=== PATIENT | female | born 1935 | race Caucasian/White ===

== ENCOUNTER 2020-09-04 15:34 | Emergency (ER) | payer MEDICARE, OTHER ==
[2020-09-04] MEDS ORDERED: Boostrix 0.5 ML VIAL ONE (17:42)
--- NOTE | 2020-09-04 18:24 | CT ---
Exam: Head CT without contrast HISTORY: Fall. Pain. COMPARISON: none FINDINGS: Hemorrhage: No intraparenchymal hemorrhage or extra-axial hematoma. Brain parenchyma: Cortical hunter-white matter differentiation is preserved. No mass effect or midline shift. Basilar cisterns are patent.White matter hypodensities due to chronic small vessel ischemic change. 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 Calvarium: Intact. Scalp: Frontal scalp hematoma and soft tissue laceration with subcutaneous emphysema. Sinuses and mastoid air cells: There are bilateral nasal bone fractures. Associated soft tissue swell ing. Adequate aeration of paranasal sinuses and mastoid air cells. IMPRESSION: 1. No intracranial posttraumatic sequelae 2. Scalp hematoma. 3. Bilateral nasal bone fractures with associated soft tissue swelling.
--- NOTE | 2020-09-04 18:26 | CT ---
Exam: Maxillofacial CT without contrast HISTORY: Fall. Trauma. Pain FINDINGS: Frontal scalp hematoma with subcutaneous emphysema suggesting scalp injury and laceration. Intact philipp varium There is soft tissue swelling about the nose. There are [id number] nasal bone fractures. Nasal sep yvette is intact and not deviated. Bilateral ostiomeatal complexes are patent. Adequate aeration of the paranasal sinuses. Adequate aeration of the mastoid air cells Mandible, maxillary ridge, osseous margins of the sinuses are intact. Zygomatic arches are intact. Aerodigestive tract is grossly patent. Limited evaluation by extensive dental amalgam artifact. There is a fracture involving the odontoid process. See separate C-spine CT report for further detail. Bilateral ocular lens implants are appropriately located. Both globes are intact. Retrobulbar fat is preserved. Symmetric attenuation the optic nerves and ocular rectus muscles. There is right periorbital post traumatic changes. IMPRESSION: 1. Posttraumatic change involving the scalp. 2. Posttraumatic change involving the soft tissues about the nose. There are bilateral nasal bone fra ctures. 3. Incompletely evaluated odontoid fracture. 4. Right periorbital hematoma. Transcribed Date/Time: 09/04/2020 6:41 PM
--- NOTE | 2020-09-04 19:17 | CT ---
CERVICAL SPINE CT SCAN WITHOUT IV CONTRAST: 09/04/20 HISTORY: Injury from a trip and fall. FINDINGS: There is heterogeneous bone demineralization with extensive multilevel disc osteophytosis and facet a rthrosis. There is an irregular type III odontoid fracture through the base of the odontoid. There is an associated interosseous cyst measuring approximately 0.7 x 1.3 cm. There is some moderate degener ative callus around the C1-C2 odontoid joint. There is incomplete segmentation and resultant fusion o f C7-T1. Disc osteophytosis and facet arthrosis. IMPRESSION: Somewhat irregular, essentially nondisplaced type II odontoid fracture with an associated interosseou s cyst within the odontoid. No significant malalignment. Evidence for small thyroid nodules including somewhat caudally extending nodule off the right lobe up to 1 cm. Findings were discussed in regards to the cervical spine fracture with Dr. Deal in the Emergency R oom at 1835 hours. POS: RRE
--- NOTE | 2020-09-04 19:35 | RAD ---
Exam: Chest one view HISTORY:Fall. Pain. Comparison: None FINDINGS: Cardiac silhouette: Normal Aorta: Atherosclerosis Pulmonary vessels: Normal Costophrenic angles: Clear LUNGS: Hyperinflation with chronic changes. No consolidation or masses. Pneumothorax: None Osseous abnormalities: Diffuse bony mineralization. No fracture. IMPRESSION: 1. Atherosclerosis 2. No acute cardiac pulmonary process. Chronic lung parenchymal changes. 3. Diffuse bony mineralization.
[2020-09-04 19:50] LABS: #Basophils 0.1 thou/uL (0.0-0.2); #Eosinphils 0.1 thou/uL (0.0-0.7); #Lymphocytes 1.2 thou/uL (1.20-3.40); #Monocytes 0.6 thou/uL (0.11-0.59); #Neutrophils 5.4 thou/uL (1.40-6.50); %Basophils 0.7 % (0.0-1.0); %Eosinophils 1.6 % (0.0-10.0); %Lymphocytes 15.8 % (21.0-51.0); %Monocytes 8.5 % (0.0-10.0); %Neutrophils 73.4 % (42.0-75.0); Hemoglobin 13.1 g/dL (12.0-16.0); Mean Corpuscular HGB CONC 34.6 g/dL (32.0-36.0); Mean Corpuscular Hemoglobin 31.9 pg (27.0-31.0); Mean Corpuscular Volume 92.2 fL (78.0-98.0); Mean Platelet Volume 7.9 fL (7.4-10.4); Platelet Count 212 thou/uL (130-400); RBC Distribution Width 11.4 % (11.5-14.5); White Blood Cell (WBC) Count 7.4 thou/uL (4.8-10.8)
[2020-09-04 19:56] LABS: INR-International Normal Ratio 0.9; PTT 26.4 sec (22.9-36.1); Prothrombin Time 12.6 sec (12.0-14.7)
[2020-09-04 20:13] LABS: ALT (SGPT) 15 U/L (8-55); AST (SGOT) 23 U/L (5-34); Albumin 4.2 g/dL (3.4-4.8); Alkaline Phosphatase 54 U/L (40-110); Anion Gap 14 mmol/L (10-20); BUN (Urea Nitrogen) 26 mg/dL (9.8-20.1); Bilirubin, Total 0.4 mg/dL (0.2-1.2); Calc. Creatinine Clearance 0 mL/min (70-130); Calcium 9.6 mg/dL (7.8-10.44); Carbon Dioxide 24 mmol/L (23-31); Chloride 107 mmol/L (98-107); Estimated GFR-MDRD 56; Globulin 2.8 g/dL (2.4-3.5); Glucose 98 mg/dL (83-110); Potassium 3.5 mmol/L (3.5-5.1); Sodium 141 mmol/L (136-145)
[2020-09-04] MEDS ORDERED: Lidocaine 1% w/Epinephrine 1:100K 20 ML VIAL ONE (20:33)
--- NOTE | 2020-09-05 01:55 | CON ---
DATE OF CONSULTATION: 09/04/2020 CHIEF COMPLAINT: Fall. HISTORY OF PRESENT ILLNESS: Ms. Cespedes is an 84-year-old female, fell leaving [facility] in [place] walking to her car. When I saw her in the emergency room, she had lacerations to the right side of her face. She had free active range of motion in all extremities. No focal motor weakness. No reflex asymmetry. Neurosurgery was consulted due to a spinal CT showing a type 2 odontoid fracture. REVIEW OF SYSTEMS: CONSTITUTION: She denies fever or chills. ENT: She denies change of vision or hearing. CARDIAC: She denies chest pain, shortness of breath, or diaphoresis. PULMONARY: She denies shortness of breath, cough, or hemoptysis. GASTROINTESTINAL: She denies abdominal pain, nausea, vomiting, diarrhea, or change in stool formation and consistency. GENITOURINARY: She denies trouble with urination, frequency of urination, or bloody urine. SKIN: She reports abrasions to the right side of her face, bruising, and bleeding. MUSCULOSKELETAL: As per history of present illness. NEUROLOGICAL: As per history of present illness. PSYCHOLOGICAL: She denies anxiety, depression, or behavior changes. PAST MEDICAL HISTORY: Hyperlipidemia and hypertension. PAST SURGICAL HISTORY: Hysterectomy, knee surgery, and bladder lift. SOCIAL HISTORY: She denies smoking, illicit drugs, or alcohol. MEDICATIONS: 1. Baby aspirin. 2. Atorvastatin 40 mg. 3. Lisinopril 5 mg. 4. Omeprazole 20 mg. ALLERGIES: NO KNOWN DRUG ALLERGIES. PHYSICAL EXAMINATION: VITAL SIGNS: BP is 142/88, pulse is 72, respiratory rate is 16, and temperature is 98.6. EYES: Pupils are equal. Extraocular movements are intact. NECK: Cervical brace. Palpation of the cervical spine indicates no pain. NEUROLOGICAL: Awake, alert, and oriented x3. Memory, attention, and fund of knowledge are normal. Cranial nerves are grossly intact. Upper extremities: She has 5/5 bilateral strength in her deltoids, biceps, triceps, wrist extension, finger extension, and finger intrinsics. Sensation is equal bilaterally. Reflexes are symmetric. Lower extremities: She has 5/5 bilateral strength in her iliopsoas, quadriceps, hamstrings, anterior tib, EHL, and gastrocnemius. There is no area of dermatomal sensory loss. The reflexes are symmetric. The toes are downgoing. GCS is 15. RADIOGRAPHIC DATA: Cervical spine CT shows an odontoid fracture (which is most likely chronic given the physical exam) ASSESSMENT: Old odontoid fracture. PLAN: A [place] J collar is to be worn to help with pain. We will have her follow up in 2 to 3 weeks in our clinic and repeat scan prior to the visit. Job ID: [id number] MTDD
== END 2020-09-04 21:19 | disposition home or self-care (01) ==
LOC: ERS 15:34
DX: S12.120A Other displaced dens fracture, initial encounter for closed fracture (principal); S01.21XA Laceration without foreign body of nose, initial encounter; S01.81XA Laceration without foreign body of other part of head, initial encounter; E78.5 Hyperlipidemia, unspecified; I10 Essential (primary) hypertension; Z79.899 Other long term (current) drug therapy; Z79.82 Long term (current) use of aspirin; W01.0XXA Fall on same level from slipping, tripping and stumbling without subsequent striking against object, initial encounter
CPT/HCPCS: 12001; 12014; 36415; 70450; 70486; 71045; 72125; 80053; 85025; 85610; 85730; 90471; 90715; 93005

== ENCOUNTER 2020-09-22 09:12 | Outpatient (CLI) | payer MEDICARE, OTHER ==
--- NOTE | 2020-09-22 11:07 | RAD ---
CERVICAL SPINE 5 VIEWS: Date: 09/22/2020 HISTORY: Odontoid fracture. COMPARISON: CT exam dated 09/04/2020. FINDINGS: Skull base is intact. No further displacement of the odontoid fracture. Open-mouth odontoid view appears relatively normal appearing C1-2 articulation. No new acute superimposed fracture or malalignment. IMPRESSION: No further displacement of the odontoid fracture. POS: HOME
== END 2020-09-22 09:13 | disposition home or self-care (01) ==
LOC: TBSIIMAG 09:12
PROVIDERS: ATTEND Neurological Surgery
DX: S12.110A Anterior displaced Type II dens fracture, initial encounter for closed fracture (principal)
CPT/HCPCS: 72040

== ENCOUNTER 2020-12-02 13:37 | Outpatient (CLI) | payer MEDICARE, OTHER ==
--- NOTE | 2020-12-02 14:47 | RAD ---
CERVICAL SPINE: 12/02/20 Total of five images. INDICATIONS: Follow-up odontoid fracture. Correlation made to prior cervical films of 09/22/[address] of 09/04/20. There is a cystic lesion in the base of the odontoid through which a fracture was described on 0. No evidence of significant change in position of the odontoid when compared to that exam. The other cervical vertebrae maintain height and alignment with degenerative disc changes at all leve ls. Prominent facet hypertrophy. Stable findings when compared to prior exam. IMPRESSION: Stable cervical spine findings. Odontoid shows no significant interval change in position. POS: AGW
--- NOTE | 2020-12-02 15:41 | RAD ---
EXAM: XR Cerv Sp Ap Lat STANDARD PROVIDED CLINICAL HISTORY: Nondisplaced type II dens fracture. Follow-up evaluation. COMPARISON: 12/02/2020 at 1359 hours. Comparison also made to CT cervical spine on 09/04/2020 FINDINGS: Round lucency in the anterior aspect of the base of the odontoid is again seen. There is a linear are a of sclerosis and lucency also seen at the base of the odontoid corresponding to patient's known type II odontoid fracture. No abnormal translational motion is appreciated at the level of the fractu re on the flexion and extension views. Multilevel degenerative changes are again seen throughout the cervical spine. No vertebral body heigh t loss is present. There is trace anterolisthesis of C6 on C7. Prevertebral soft tissues have a normal appearance. IMPRESSION: 1. Stable appearance of type II odontoid fracture better visualized on prior CT scan cervical spine. There is no abnormal translational motion seen at the level of the fracture between flexion and extension. 2. Multilevel degenerative changes.
== END 2020-12-02 13:38 | disposition home or self-care (01) ==
LOC: BICRAD 13:37
PROVIDERS: ATTEND Neurological Surgery
DX: S12.112D Nondisplaced Type II dens fracture, subsequent encounter for fracture with routine healing (principal); M47.812 Spondylosis without myelopathy or radiculopathy, cervical region
CPT/HCPCS: 72040